=== PATIENT | male | born 1955 | race Caucasian/White ===

== ENCOUNTER → 2017-08-12 09:47 | Outpatient (CLI) | payer OTHER, SELFPAY ==
[2017-08-12 10:32] LABS: Absolute Lymphocyte Count 1.56 X10^3/ul (0.83-4.51); Absolute Neutrophil Count 2.9 X10^3/uL (2.0-7.7); Basophil# 0.05 X10^3/uL; Eosinophil# 0.31 X10^3/uL; Hematocrit 46.3 % (40-54); Hemoglobin 15.7 g/dl (13.0-16.5); Lymphocyte # 1.56 X10^3/ul (4.0); Lymphocyte % 30.2 % (19-41); Mean Corp Hgb Conc 33.9 g/gl (32-36); Mean Corpuscular Hgb 30.5 pg (27.0-32.0); Mean Corpuscular Volume 90.1 fL (80-94); Mean Platelet Vol. 12.3 fl (6.2-12.0); Monocyte# 0.38 X10^3/uL; Monocyte% 7.4 % (0-10); Neutrophil # 2.85 X10^3/uL (2.7-7.7); Neutrophil % 55.2 % (47-70); Platelet Count 165 K/mm3 (150-450); RBC Distribution Width CV 13.6 % (11.6-14.6); RBC Distribution Width SD 44.8 fl (35.1-43.9); Red Blood Count 5.14 M/mm3 (4.6-6.2); White Blood Count 5.2 K/mm3 (4.4-11.0)
[2017-08-12 10:51] LABS: POSITIVE COUNT NO; POSITIVE DIFFERENTIAL NO; POSITIVE MORPHOLOGY NO
[2017-08-12 10:57] LABS: ALB/GLOB Ratio 1.1 RATIO (0.9-2.4); AST(SGOT) 24 U/L (15-37); Alanine Aminotransfer ALT/SGPT 25 U/L (16-61); Albumin, Serum 3.8 g/dL (3.2-5.0); Alkaline Phosphatase 50 U/L (45-117); Anion Gap 8 (5-15); BUN 24 mg/dL (7-18); BUN/Creat Ratio 13.3 RATIO (10-20); Calcium,Total 8.9 mg/dL (8.5-10.1); Chloride 105 mmol/L (98-107); Creatinine, Serum 1.81 mg/dL (0.70-1.30); EST Glomerular Filtration Rate 40 mL/min (>60); Est Glom Filt Rate - Afr Amer 49 mL/min (>60); Globulin 3.5 g/dL (2.2-4.2); Glucose 63 mg/dL (74-106); PSA,Total - Annual Screen 1.95 ng/mL (0.00-4.00); Potassium 4.6 mmol/L (3.5-5.1); Protein, Total 7.3 g/dL (6.4-8.2); Sodium Level 141 mmol/L (136-145); Thyroid Stim Hormone (TSH) 0.92 uIU/mL (0.358-3.74)
[2017-08-13 16:01] LABS: Hep C Antibodies <0.1 s/co ratio (0.0-0.9)
== END ==
PROVIDERS: Family Provider Family Medicine Geriatric Medicine; PCP Family Medicine Geriatric Medicine; Visit Provider Family Medicine Geriatric Medicine
DX: F52.8 Other sexual dysfunction not due to a substance or known physiological condition (principal); R53.83 Other fatigue; Z12.5 Encounter for screening for malignant neoplasm of prostate; Z13.89 Encounter for screening for other disorder
CPT/HCPCS: 36415; 80053; 84153; 84403; 84443; 85025; 86803; G0103

== ENCOUNTER → 2017-09-20 10:52 | Outpatient (CLI) | payer OTHER, SELFPAY ==
--- NOTE | 2017-09-20 10:56 | US_ITS ---
STUDY: RENAL ULTRASOUND - COMPLETE REASON FOR EXAM: Male, 62 years old. Acute renal failure. TECHNIQUE: Ultrasound evaluation of the kidneys was performed with real-time and static villagomez-scale imaging. COMPARISON: CT scan 12/04/2014. FINDINGS: RIGHT KIDNEY: Normal location of the right kidney, which is normal in size. The right kidney measures 12.8 x 5.4 x 6.4 cm. There is a normal cortex of the right kidney. The renal cortex measures 1.2 cm. Full right renal cysts are seen measuring 1.5 and 5.3 cm. Large area of shadowing and echogenicity in the lower pole is consistent with a renal stone approximately 1.8 cm. There is no right hydronephrosis. DISTAL RIGHT URETER: There is non-visualization of the distal right ureter. There is no demonstrated right ureterovesical junction calculus. There is a visualized right ureteral jet. LEFT KIDNEY: Normal location of the left kidney, which is normal in size. The left kidney measures 10.8 x 8.0 x 7.7 cm. There is diffuse thinning of the renal cortex. The renal cortex measures 0.9 cm. Multiple renal cysts as much as 1.2 cm. Probable 1.1 cm lower pole stone. Probable 1.1 cm proximal ureteral stone. There is severe hydronephrosis of the left kidney. DISTAL LEFT URETER: There is moderate hydroureter of the distal left ureter. There is no demonstrated left ureterovesical junction calculus. There is a visualized left ureteral jet. BLADDER: There is a normal wall thickness of the distended urinary bladder. There is no demonstrated mass within the urinary bladder. There are no demonstrated bladder calculi. US/Kidney and Bladder IMPRESSION: Severe left hydronephrosis and proximal hydroureter related to a 1.1 cm proximal ureteral stone. Bilateral renal cysts and stones. Electronically Signed: Trevor Berrios MD at 16:55 EDT , Service support ,
== END ==
PROVIDERS: Family Provider Family Medicine Geriatric Medicine; PCP Family Medicine Geriatric Medicine; Visit Provider Internal Medicine Nephrology
DX: N17.9 Acute kidney failure, unspecified (principal)
CPT/HCPCS: 76770

== ENCOUNTER → 2017-10-11 08:43 | Outpatient (CLI) | payer OTHER, SELFPAY ==
[2017-10-11 10:56] LABS: Albumin, Serum 3.8 g/dL (3.2-5.0); BUN 19 mg/dL (7-18); Calcium,Total 8.6 mg/dL (8.5-10.1); Chloride 103 mmol/L (98-107); EST Glomerular Filtration Rate 34 mL/min (>60); Est Glom Filt Rate - Afr Amer 41 mL/min (>60); Glucose 157 mg/dL (74-106); Potassium 4.4 mmol/L (3.5-5.1); Sodium Level 137 mmol/L (136-145)
== END ==
PROVIDERS: Family Provider Family Medicine Geriatric Medicine; PCP Family Medicine Geriatric Medicine; Visit Provider Internal Medicine Nephrology
DX: N18.3 Chronic kidney disease, stage 3 (moderate) (principal)
CPT/HCPCS: 36415; 80069

== ENCOUNTER → 2017-10-28 08:52 | Outpatient (CLI) | payer OTHER, SELFPAY ==
[2017-10-28 10:48] LABS: Anion Gap 7 (5-15); BUN 23 mg/dL (7-18); BUN/Creat Ratio 12.9 RATIO (10-20); Calcium,Total 8.6 mg/dL (8.5-10.1); Chloride 107 mmol/L (98-107); Creatinine, Serum 1.78 mg/dL (0.70-1.30); EST Glomerular Filtration Rate 41 mL/min (>60); Est Glom Filt Rate - Afr Amer 50 mL/min (>60); Glucose 119 mg/dL (74-106); Potassium 4.4 mmol/L (3.5-5.1); Sodium Level 142 mmol/L (136-145)
== END ==
PROVIDERS: Family Provider Family Medicine Geriatric Medicine; PCP Family Medicine Geriatric Medicine; Visit Provider Internal Medicine Nephrology
DX: N17.9 Acute kidney failure, unspecified (principal)
CPT/HCPCS: 36415; 80048

== ENCOUNTER → 2017-11-11 08:11 | Outpatient (CLI) | payer OTHER, SELFPAY ==
--- NOTE | 2017-11-11 08:14 | RAD_ITS ---
STUDY: X-RAY - ABDOMEN/PELVIS REASON FOR EXAM: Male, 62 years old. Bilateral kidney stones. History of left sided stent. TECHNIQUE: Two AP supine views of the abdomen and pelvis. COMPARISON: Ultrasound of the kidneys and bladder, September 20, 2017. Abdomen, March 19, 2015. FINDINGS: The lung bases are not included. There is an unremarkable bowel gas pattern. There is no demonstrated free abdominal air. The visualized liver, spleen and kidneys are grossly normal in size and morphology. There is a left ureteral stent. There is increase in size of a left staghorn calculus when compared to the prior study. There is now a 1.6 x 1 cm ovoid calcification in the left renal pelvis. There is a stable calcification lower pole calyx of the left kidney measuring 1.6 cm in greatest dimension. Previous study. Normal soft tissue structures. There are diffuse degenerative changes of the visualized lumbar spine. RAD/Abdomen Single View IMPRESSION: 1. Increasing size of left staghorn calculus when compared to prior study. There is now a calcification in the left renal pelvis not previously seen. 2. New left ureteral stent. 3. Stable right lower pole renal calculus. Electronically Signed: Mac Ny DO at 16:52 EDT Tel [phone], Service support ,
== END ==
PROVIDERS: Family Provider Family Medicine Geriatric Medicine; PCP Family Medicine Geriatric Medicine; Visit Provider Urology
DX: N20.1 Calculus of ureter (principal)
CPT/HCPCS: 74018

== ENCOUNTER → 2018-07-28 16:53 | Outpatient (CLI) | payer OTHER, SELFPAY ==
[2018-07-28 17:36] LABS: Albumin, Serum 3.7 g/dL (3.2-5.0); BUN 23 mg/dL (7-18); Calcium,Total 8.8 mg/dL (8.5-10.1); Chloride 109 mmol/L (98-107); Creatinine, Serum 1.77 mg/dL (0.70-1.30); EST Glomerular Filtration Rate 41 mL/min (>60); Est Glom Filt Rate - Afr Amer 50 mL/min (>60); Glucose 110 mg/dL (74-106); Phosphorus 3.6 mg/dL (2.5-4.9); Sodium Level 143 mmol/L (136-145)
== END ==
PROVIDERS: Family Provider Family Medicine Geriatric Medicine; PCP Family Medicine Geriatric Medicine; Visit Provider Internal Medicine Nephrology
DX: N18.3 Chronic kidney disease, stage 3 (moderate) (principal)
CPT/HCPCS: 36415; 80069

== ENCOUNTER → 2018-08-18 08:59 | Outpatient (CLI) | payer OTHER, SELFPAY ==
[2018-08-18 12:46] LABS: Absolute Lymphocyte Count 1.35 X10^3/ul (0.83-4.51); Absolute Neutrophil Count 3.3 X10^3/uL (2.0-7.7); Basophil# 0.02 X10^3/uL; Basophil% 0.4 % (0-1); Eosinophil# 0.32 X10^3/uL; Eosinophils% 6.1 % (0-5); Hematocrit 46.2 % (40-54); Hemoglobin 14.9 g/dl (13.0-16.5); Lymphocyte # 1.35 X10^3/ul (4.0); Lymphocyte % 25.7 % (19-41); Mean Corp Hgb Conc 32.3 g/gl (32-36); Mean Corpuscular Hgb 29.7 pg (27.0-32.0); Mean Platelet Vol. 12.4 fl (6.2-12.0); Monocyte# 0.29 X10^3/uL; Monocyte% 5.5 % (0-10); Neutrophil # 3.27 X10^3/uL (2.7-7.7); Neutrophil % 62.3 % (47-70); Platelet Count 166 K/mm3 (150-450); RBC Distribution Width CV 13.5 % (11.6-14.6); RBC Distribution Width SD 44.8 fl (35.1-43.9); Red Blood Count 5.02 M/mm3 (4.6-6.2); White Blood Count 5.3 K/mm3 (4.4-11.0)
[2018-08-18 13:09] LABS: POSITIVE COUNT NO; POSITIVE DIFFERENTIAL NO; POSITIVE MORPHOLOGY NO
[2018-08-18 13:40] LABS: Albumin, Serum 3.8 g/dL (3.2-5.0); BUN 23 mg/dL (7-18); BUN/Creat Ratio 11.7 RATIO (10-20); Creatinine, Serum 1.97 mg/dL (0.70-1.30); EST Glomerular Filtration Rate 37 mL/min (>60); Est Glom Filt Rate - Afr Amer 44 mL/min (>60); Glucose 132 mg/dL (74-106); Protein, Total 7.1 g/dL (6.4-8.2)
[2018-08-18 13:41] LABS: ALB/GLOB Ratio 1.2 RATIO (0.9-2.4); AST(SGOT) 26 U/L (15-37); Alanine Aminotransfer ALT/SGPT 25 U/L (16-61); Alkaline Phosphatase 55 U/L (45-117); Anion Gap 10 (5-15); Calcium,Total 8.7 mg/dL (8.5-10.1); Chloride 104 mmol/L (98-107); Globulin 3.3 g/dL (2.2-4.2); PSA,Total - Annual Screen 3.71 ng/mL (0.00-4.00); Potassium 4.2 mmol/L (3.5-5.1); Sodium Level 141 mmol/L (136-145); Thyroid Stim Hormone (TSH) 1.33 uIU/mL (0.358-3.74)
== END ==
PROVIDERS: Family Provider Family Medicine Geriatric Medicine; PCP Family Medicine Geriatric Medicine; Visit Provider Family Medicine Geriatric Medicine
DX: I10 Essential (primary) hypertension (principal); F52.8 Other sexual dysfunction not due to a substance or known physiological condition; Z12.5 Encounter for screening for malignant neoplasm of prostate
CPT/HCPCS: 36415; 80053; 84153; 84403; 84443; 85025; G0103

== ENCOUNTER → 2018-08-26 13:42 | Outpatient (CLI) | payer MEDICARE, OTHER, SELFPAY ==
--- NOTE | 2018-08-26 13:51 | ECHOD_ITS ---
Reason For Study: SOB, aortic stenosis Procedure This was a 2D Doppler, Color Flow transthoracic echocardiogram. The exam was of adequate technical quality. Exam performed in department. Left Ventricle Normal LV size. Mild concentric left ventricular hypertrophy. Left ventricular systolic function is normal. The estimated ejection fraction is 65 %. Diastolic function is indeterminate. No regional wall motion abnormalities noted. Right Ventricle Normal RV size. Normal systolic function. Atria Normal left atrium. Normal right atrium. No doppler evidence for ASD. Mitral Valve There is no mitral annular calcification. Mild focal mitral valve calcification of the anterior leaflet. Trivial mitral valve insufficiency. Tricuspid Valve Normal tricuspid valve. Trivial tricuspid valve insufficiency. Right ventricular systolic pressure estimated to be 31 mmHg. Aortic Valve Trisinus/trileaflet aortic valve. Mild focal aortic valve calcification. Trivial aortic valve insufficiency. Pulmonic Valve The pulmonic valve is not well visualized. Great Vessels Normal sized aortic root. Pericardium/Pleural No pericardial effusion. MMode/2D Measurements & Calculations LVIDd: 4.6 cm IVSd: 1.3 cm LVOT diam: 2.3 cm LVIDs: 3.0 cm LVPWd: 1.3 cm LVOT area: 4.1 cm2 RVDd: 3.8 cm FS: 34.5 % Ao root diam: 3.4 cm LAV(MOD-bp): 65.7 ml LA A4 area: 19.6 cm2 LAV(MOD-bp) Indexed: 32.9 ml/m2 LAV(MOD-sp2): 62.8 ml LAV(MOD-sp4): 63.7 ml LA dimension(2D): 3.8 cm RA A4 area: 18.2 cm2 Doppler Measurements & Calculations MV E max john: 114.7 cm/sec Lat Peak E' John: 7.7 cm/sec Med Peak E' John: 7.4 cm/sec MV A max john: 80.2 cm/sec E/E' lat: 14.9 E/E' med: 15.6 MV E/A: 1.4 Ao V2 max: 194.4 cm/sec LV V1 max: 154.1 cm/sec SV(LVOT): 140.4 ml Ao max P.2 mmHg LV V1 max P.5 mmHg Ao V2 mean: 138.3 cm/sec LV V1 mean P.1 mmHg Ao mean P.4 mmHg LV V1 mean: 106.5 cm/sec Ao V2 VTI: 41.9 cm LV V1 VTI: 34.4 cm TAMY(I,D): 3.4 cm2 TAMY(V,D): 3.2 cm2 PA V2 max: 115.7 cm/sec TR max john: 260.8 cm/sec TR max P.6 mmHg Interpretation Summary Left ventricular systolic function is normal. The estimated ejection fraction is 65 %. Mild concentric left ventricular hypertrophy. Mild focal mitral valve calcification of the anterior leaflet. Trivial mitral valve insufficiency. Trivial tricuspid valve insufficiency. Mild focal aortic valve calcification. Trivial aortic valve insufficiency. Right ventricular systolic pressure estimated to be 31 mmHg. Diastolic function is indeterminate. Ordering Physician: Arsenio Stafford Referring Physician: Arsenio Stafford Chi Performed By: Tonya Taylor, BETO, RVT
== END ==
PROVIDERS: Family Provider Family Medicine Geriatric Medicine; PCP Family Medicine Geriatric Medicine; Referring Provider Family Medicine Geriatric Medicine; Visit Provider Family Medicine Geriatric Medicine
DX: I35.8 Other nonrheumatic aortic valve disorders (principal); R06.02 Shortness of breath
CPT/HCPCS: 93306

== ENCOUNTER → 2019-07-29 10:45 | Outpatient (CLI) | payer MEDICARE, OTHER, SELFPAY ==
[2018-12-17 10:49] VITALS: BMI 24.6
[2019-07-29 12:34] LABS: Absolute Lymphocyte Count 1.89 X10^3/uL (0.83-4.51); Absolute Neutrophil Count 4.2 X10^3/uL (2.0-7.7); Basophil# 0.05 X10^3/uL; Basophil% 0.7 % (0-1); Eosinophil# 0.22 X10^3/uL; Eosinophils% 3.3 % (0-5); Lymphocyte # 1.89 X10^3/ul (4.0); Lymphocyte % 28.3 % (19-41); Mean Corp Hgb Conc 33.3 g/dL (32-36); Mean Corpuscular Hgb 29.6 pg (27.0-32.0); Mean Corpuscular Volume 88.7 fL (80-94); Mean Platelet Vol. 11.8 fl (6.2-12.0); Monocyte# 0.29 X10^3/uL; Monocyte% 4.3 % (0-10); NRBC Flagged by Analyzer 0 % (0-5); Neutrophil # 4.21 X10^3/uL (2.7-7.7); Neutrophil % 63.1 % (47-70); Platelet Count 201 K/mm3 (150-450); RBC Distribution Width SD 41.8 fl (35.1-43.9); Red Blood Count 5.41 M/mm3 (4.6-6.2); White Blood Count 6.7 K/mm3 (4.4-11.0)
[2019-07-29 13:22] LABS: AST(SGOT) 23 U/L (15-37); Alanine Aminotransfer ALT/SGPT 24 U/L (12-78); Albumin, Serum 3.9 g/dL (3.4-5.0); Alkaline Phosphatase 63 U/L (50-136); Anion Gap 4 (5-15); BUN 19 mg/dL (7-18); BUN/Creat Ratio 10.6 RATIO (10-20); Calcium,Total 9.3 mg/dL (8.5-10.1); Chloride 106 mmol/L (98-107); Cholesterol 155 mg/dL (200); EST Glomerular Filtration Rate 40 mL/min (>60); Est Glom Filt Rate - Afr Amer 49 mL/min (>60); Globulin 4.1 g/dL (2.3-3.5); Glucose 113 mg/dL (70-110); High Density Lipoprotein 53 mg/dL; Potassium 4.4 mmol/L (3.5-5.1); Sodium Level 138 mmol/L (136-145); Thyroid Stim Hormone (TSH) 0.91 uIU/mL (0.358-3.74); Triglycerides 124 mg/dL; Very Low Density Lipoprotein 25 mg/dL (5-40)
== END ==
PROVIDERS: PCP Family Medicine Geriatric Medicine; Referring Provider Internal Medicine Nephrology; Visit Provider Family Medicine Geriatric Medicine
DX: I12.9 Hypertensive chronic kidney disease with stage 1 through stage 4 chronic kidney disease, or unspecified chronic kidney disease (principal); N18.3 Chronic kidney disease, stage 3 (moderate); E78.5 Hyperlipidemia, unspecified
CPT/HCPCS: 36415; 80053; 80061; 84443; 85025

== ENCOUNTER → 2019-08-20 | Outpatient (CLI) | payer MEDICARE, OTHER, SELFPAY ==
[2018-12-17 10:49] VITALS: BMI 24.6
[2019-08-20 11:58] LABS: Absolute Lymphocyte Count 1.65 X10^3/uL (0.83-4.51); Absolute Neutrophil Count 4.1 X10^3/uL (2.0-7.7); Basophil# 0.04 X10^3/uL; Basophil% 0.6 % (0-1); Eosinophil# 0.29 X10^3/uL; Eosinophils% 4.5 % (0-5); Hematocrit 46.5 % (40-54); Hemoglobin 15.3 g/dL (13.0-16.5); Lymphocyte # 1.65 X10^3/ul (4.0); Lymphocyte % 25.8 % (19-41); Mean Corp Hgb Conc 32.9 g/dL (32-36); Mean Corpuscular Volume 88.2 fL (80-94); Mean Platelet Vol. 11.6 fl (6.2-12.0); Monocyte# 0.32 X10^3/uL; NRBC Flagged by Analyzer 0 % (0-5); Neutrophil # 4.08 X10^3/uL (2.7-7.7); Neutrophil % 63.9 % (47-70); Platelet Count 192 K/mm3 (150-450); RBC Distribution Width CV 13.3 % (11.6-14.6); RBC Distribution Width SD 42.8 fl (35.1-43.9); Red Blood Count 5.27 M/mm3 (4.6-6.2); White Blood Count 6.4 K/mm3 (4.4-11.0)
[2019-08-20 12:03] LABS: Vitamin D,25 Hydroxy 37.2 ng/mL
[2019-08-20 12:09] LABS: AST(SGOT) 24 U/L (15-37); Alanine Aminotransfer ALT/SGPT 30 U/L (16-61); Albumin, Serum 3.8 g/dL (3.2-5.0); Alkaline Phosphatase 62 U/L (45-117); Anion Gap 5 (5-15); BUN 20 mg/dL (7-18); BUN/Creat Ratio 11.7 RATIO (10-20); Calcium,Total 8.7 mg/dL (8.5-10.1); Chloride 104 mmol/L (98-107); Creatinine, Serum 1.71 mg/dL (0.70-1.30); EST Glomerular Filtration Rate 43 mL/min (>60); Est Glom Filt Rate - Afr Amer 52 mL/min (>60); Globulin 3.8 g/dL (2.2-4.2); Glucose 145 mg/dL (74-106); PSA,Total - Annual Screen 3.43 ng/mL (0.00-4.00); Potassium 4.1 mmol/L (3.5-5.1); Protein, Total 7.6 g/dL (6.4-8.2); Sodium Level 138 mmol/L (136-145); Thyroid Stim Hormone (TSH) 1.05 uIU/mL (0.358-3.74)
== END | disposition home or self-care (01) ==
LOC: POLAB3 10:46
PROVIDERS: PCP Family Medicine Geriatric Medicine; Visit Provider Family Medicine Geriatric Medicine
DX: E55.9 Vitamin D deficiency, unspecified (principal); I10 Essential (primary) hypertension; Z12.5 Encounter for screening for malignant neoplasm of prostate
CPT/HCPCS: 36415; 80053; 82306; 84153; 84443; 85025; G0103

== ENCOUNTER → 2020-01-18 | Outpatient (CLI) | payer MEDICARE, OTHER, SELFPAY ==
[2018-12-17 10:49] VITALS: BMI 24.6
--- NOTE | 2020-01-18 13:53 | NEURO ---
NCS and/or EMG Patient Report Ordering Doctor: Arsenio Stafford Chi DATE OF SERVICE: 01/18/20 Indication: Bilateral hand paresthesias and numbness intermittently. Symptoms have been present on the right side for approximately 15 years. Over the last 6 months there has been interval development of a similar phenomenon in the left upper extremity. No history of localized neck or radicular pain. Evaluate for median neuropathy. Findings: Nerve conduction studies were performed in the bilateral upper extremities. The right median motor study recording the abductor pollicis brevis demonstrated a normal amplitude, prolonged distal latency and normal conduction velocity. The right ulnar motor study recording the abductor digiti minimi revealed a normal amplitude, distal latency and conduction velocity. There was no focal slowing or conduction block across the elbow. The right median sensory response recording digit 2 demonstrated a reduced amplitude, prolonged peak latency and mildly slowed conduction velocity. The right ulnar sensory study recording digit 5 demonstrated a borderline amplitude, normal peak latency, and normal conduction velocity. The right radial sensory study recording the dorsum of the hand demonstrated a normal amplitude, peak latency, and conduction velocity. The left median motor study recording the abductor pollicis brevis demonstrated a normal amplitude, normal distal latency and normal conduction velocity. The left ulnar motor study recording the abductor digiti minimi revealed a normal amplitude, distal latency and conduction velocity (this response was significantly improved compared to the contralateral limb). There was no focal slowing or conduction block across the elbow. The left median sensory response recording digit 2 demonstrated a normal amplitude, prolonged peak latency and normal conduction velocity. The left ulnar sensory study recording digit 5 demonstrated a normal amplitude, peak latency, and conduction velocity. The right radial sensory study recording the dorsum of the hand demonstrated a normal amplitude, peak latency, and conduction velocity. Needle EMG of the right upper extremity was performed. No active denervation was seen in the examined muscle. The right abductor pollicis brevis revealed motor units which were large in amplitude, long duration, and polyphasic with slightly reduced recruitment. The other examined muscles in this limb demonstrated normal motor unit morphology, activation and recruitment patterns. Needle EMG of the left abductor pollicis brevis muscle was performed. No active denervation was seen in this muscle. Motor unit morphology, activation and recruitment pattern was normal. Impression: This is an abnormal study. There is electrophysiologic evidence of median neuropathy across both wrists. This is moderate in severity on the right side (primarily demyelinating with some evidence of chronic secondary axonal loss). Findings are mild in severity in the left upper extremity. These changes would be compatible with the clinical diagnosis of carpal tunnel syndrome. There is no evidence of a superimposed cervical radiculopathy was seen in the right upper extremity. Lastly, the asymmetric ulnar sensory response is of unclear significance. A mild, non-localizing, right ulnar neuropathy could be considered. If clinically indicated, a neuromuscular ultrasound of the right ulnar nerve could be considered. Abdirahman Vanegas D.O.
== END | disposition home or self-care (01) ==
LOC: PSN 12:13
PROVIDERS: PCP Family Medicine Geriatric Medicine; Referring Provider Family Medicine Geriatric Medicine; Visit Provider Family Medicine Geriatric Medicine
DX: G56.00 Carpal tunnel syndrome, unspecified upper limb (principal); G56.13 Other lesions of median nerve, bilateral upper limbs
CPT/HCPCS: 95885; 95886; 95911

== ENCOUNTER → 2020-02-01 13:27 | Outpatient (CLI) | payer MEDICARE, OTHER, SELFPAY ==
[2020-02-01 08:18] VITALS: BMI 24.6
--- NOTE | 2020-02-01 13:28 | RAD_ITS ---
STUDY: X-RAY - RIGHT WRIST REASON FOR EXAM: Male, 64 years old. Carpal tunnel TECHNIQUE: 3 view(s) of the wrist were obtained. COMPARISON: None. FINDINGS: Normal visualized distal radius and ulna. Normal radiocarpal articulation. Normal distal radioulnar articulation. Normal carpal bones. Normal carpal articulations. Normal carpometacarpal articulation of the thumb. Normal second through fifth carpometacarpal articulations. Normal visualized metacarpal bones. The soft tissue structures are unremarkable. RAD/Wrist min 3 Views IMPRESSION: Normal x-ray examination of the wrist. Electronically Signed: Arun Davalos, at 15:48 EDT , Service support ,
--- NOTE | 2020-02-01 13:28 | RAD_ITS ---
STUDY: X-RAY - LEFT WRIST REASON FOR EXAM: Male, 64 years old. Carpal tunnel TECHNIQUE: 3 view(s) of the wrist were obtained. COMPARISON: None. FINDINGS: Normal visualized distal radius and ulna. Normal radiocarpal articulation. Normal distal radioulnar articulation. Normal carpal bones. Normal carpal articulations. Normal carpometacarpal articulation of the thumb. Normal second through fifth carpometacarpal articulations. Normal visualized metacarpal bones. The soft tissue structures are unremarkable. RAD/Wrist min 3 Views IMPRESSION: Normal x-ray examination of the wrist. Electronically Signed: Arun Davalos, at 15:47 EDT , Service support ,
== END ==
PROVIDERS: PCP Family Medicine Geriatric Medicine; Referring Provider Orthopaedic Surgery; Visit Provider Orthopaedic Surgery
DX: M25.532 Pain in left wrist (principal); M25.531 Pain in right wrist
CPT/HCPCS: 73110

== ENCOUNTER 2020-04-05 05:38 | Day surgery (SDC) | payer MEDICARE, OTHER, SELFPAY ==
[2020-02-01 08:18] VITALS: BMI 24.6
[2020-03-21 08:53] VITALS: BMI 24.6
[2020-04-05 05:57] VITALS: BP 130/84; PULSE 59; RESP 16; TEMP 36.2; O2SAT 99; BMI 26.4
[2020-04-05] MEDS: Lactated Ringers 1,000 ML 100 ML IV (06:32)
[2020-04-05] MEDS: Cefazolin 2 GM in 0.9% Normal Saline 100 ML IV (07:02)
--- NOTE | 2020-04-05 07:10 | PCM.HP.BLA ---
History and Physical Date of Admission: 04/05/20 Intake Intake Visit Reasons: right wrist Chief Complaint: BL wrist Allergies No Known Allergies Allergy (Verified 12/17/18 10:46) [facility] Medical History (Updated 12/17/18 @ 10:50 by Randall ELAM, PA) Arthritis (Acute) HTN (hypertension) (Chronic) Social History (Updated 03/21/20 @ 09:[address] Tyrell Yates DO) Smoking Status: Former smoker alcohol intake: never HPI right wrist: Surgical H&P: Yes Details: Parts of this documentation were recorded by a scribe, this documentation accurately reflects the service provided and the decisions made by me, Dr. Tyrell Yates DO 03/21/20 0800. KIKE INGRAM is a 64 year old M here today for his pre-op right CTR on 04/05/2020. Denies pain currently. Pain is primarily located with the thumb and second, third and fourth metacarpal. Patient experiences numbness and tingling at [facility]. Patient wears a brace at [facility]. Denies usage of Tylenol and ibuprofen for pain. Denies ice packs and heat applications. ROS Const Reports system reviewed and no additional complaints, except as docu, Denies chills, Denies difficulty sleeping, Denies fatigue, Denies fever(s), Denies headache(s) ENT Denies headache(s) Card Reports system reviewed and no additional complaints, except as docu, Denies chest pain, Denies shortness of breath Resp Reports system reviewed and no additional complaints, except as docu, Denies chest congestion, Denies cough, Denies shortness of breath Musc Reports system reviewed and no additional complaints, except as docu, Denies joint pain, Denies joint swelling, Reports numbness, Reports stiffness, Reports tingling Skin/Breast Reports system reviewed and no additional complaints, except as docu, Denies dry skin, Denies redness, Denies lesions, Denies new lesions, Denies itching, Denies rash, Denies skin ulcer, Denies sores, Denies wounds Neuro Yes system reviewed and no additional complaints, except as docu, No headache(s), Yes numbness, Yes tingling Endo Denies fatigue Ortho Exam Right Wrist/Hand Skin/Wound: Yes CDI, No Swelling, No Ecchymosis, Yes nail intact, Yes capillary refill normal Right Wrist: Yes Durken's Test and Phalen's; no Tinel's, Thenar Atrophy or Hypothenar Atrophy Sensation: Radial: I, Ulnar: I, Median: I Left Wrist/Hand Skin/Wound: No Swelling, No Ecchymosis Supplemental Info 01/18/2020 EMG bilateral upper extremity: Right moderate median mononeuropathy at the wrist(carpal tunnel) mild ulnar neuropathy in question #2 left mild carpal tunnel Assessment & Plan Problems 1. Bilateral carpal tunnel syndrome G56.03 Plan Educated where the incision would be located. Numbness and tingling should improve after surgery. Educated to the patient has ulnar neuropathy, which may improve with surgery. Reviewed the pre-operative plans with the patient. Risks and benefits of the procedure were fully explained, including but not limited to infection, neurovascular injury, continued pain, arthritis, stiffness, need for further surgery, re-injury, DVT, PE, general risks of anesthesia, and loss of limb or life. The patient understands all the risks and does wish to proceed with written consent. All questions answered. Patient in agreement of plan. Coding Level of Care Code Off vis,est,level 3 Diagnoses Bilateral carpal tunnel syndrome G56.03 I have re-examined the patient. There are no clinical changes since date of exam
--- NOTE | 2020-04-05 07:11 | DCINST_ITS ---
Discharge Diet: No Restrictions Call your doctor if you observe: Shortness of breath, Chest pain Additional Instructions: Ice and elevate operative extremity next 72 hours. Keep dressing on clean and dry for 48 hours then may remove and allow warm soapy water to rinse over incision but do not submerge until sutures are out. Then apply bandaid over incision and change daily. encourage finger range of motion. Not lift more than 1/2 pound. Allergies/Adverse Reactions: Allergies No Known Allergies Allergy (Verified 04/05/20 05:55) Medications to take at Discharge Pravastatin [Pravachol] 40 mg PO QHS 12/27/14 amlodipine 5 mg tablet 5 mg PO QHS #30 tab 12/17/18 gabapentin 600 mg tablet 600 mg PO TID #90 tab 12/17/18 Aspirin [Adult Low Dose Aspirin EC] 81 mg PO DAILY 03/25/20 Multivit-Min/Folic/Vit K/Lycop [Men's 50 Plus Multivitamin Tab] 1 ea PO DAILY 03/25/20 Primary Care Physician: Arsenio Stafford Chi, MD [Primary Care Provider] - Test Results: Test results from this visit will be discussed in further detail at your follow- up appointment, if applicable. Please Follow Up With: Tyrell Yates DO - 2 weeks
--- NOTE | 2020-04-05 07:31 | PCM.OPRPT ---
Report of Operation Date of Procedure: 04/05/20 Description of Surgical Findings:: Preoperative diagnosis; right carpal tunnel syndrome Postoperative diagnosis; same Procedure: Right open carpal tunnel release Anesthesia: Local with MAC Tourniquet time; 10 minutes 250 mm Hg Complications: None Indication for procedure; This is a 64-year-old male with long-standing symptoms consistent with carpal tunnel syndrome the patient did have electrodiagnostic evidence of this and has failed conservative treatment. Risks benefits and alternatives were reviewed including risks of bleeding infection nerve artery tissue damage need for further surgery and continued pain and symptoms, hypersensitivity to scar and Pillar pain. Procedure; The patient was met in the preoperative holding area the operative extremity was identified by both patient and physician and was marked the patient was met by anesthesia and brought back to the operating room and transferred to the operating table in the supine position. Aanesthesia was started. A well-padded tourniquet was placed on the operative upper extremity. The patient was prepped and draped in the usual sterile fashion. A timeout was called to ensure the proper patient procedure and extremity were being contemplated. 0.5 percent Marcaine with epinephrine was injected into the incisional area. An Esmarch was used to exsanguinate the extremity. The tourniquet was inflated to 250 mmHg. A midline incision was made with a 15 blade scalpel between the thenar and hypothenar eminence. This was carried down through the skin and subcutaneous tissue. Aziza retractors were then used, a deep blade scalpel was used to make a deep incision in the palmar aponeurosis. The aziza retractors were then placed deep to this and the transverse carpal ligament was identified a perforation was made with a scalpel and a Littler scissors were used to complete the release of the transverse carpal ligament distally under direct visualization with the tips facing ulnarly until the perivascular fat was reached. Then turning our attention proximally using a tension slide technique the proximal extent of the transverse carpal ligament was released . There was noted to be hourglass configuration to the median nerve and hypertrophy of the transverse carpal ligament without other findings. The wound was thoroughly irrigated and was closed with 4-0 prolene vertical mattress stitches. Dressing was applied in the form of xeroform 4 x 4, web roll and an kendrick wrap. Tourniquet was let down there is no intraoperative complications patient tolerated the procedure well and was transferred to the PACU. All counts were correct.
[2020-04-05 07:35] VITALS: BP 130/77; BP 130/84; PULSE 57; RESP 16; TEMP 36.4; O2SAT 94
[2020-04-05 07:40] VITALS: BP 130/84; BP 138/72; PULSE 57; RESP 16; O2SAT 92
[2020-04-05 07:45] VITALS: BP 130/84; BP 131/82; PULSE 58; RESP 14; O2SAT 94
[2020-04-05 07:51] VITALS: BP 130/84; BP 136/83; PULSE 61; RESP 16; TEMP 36.6; O2SAT 95
[2020-04-05 08:05] VITALS: BP 130/84
--- NOTE | 2020-04-05 10:05 | HP_ITS ---
Intake Intake Visit Reasons: right wrist Chief Complaint: BL wrist Allergies No Known Allergies Allergy (Verified 12/17/18 10:46) [facility] Medical History (Updated 12/17/18 @ 10:50 by PAPA Mendez) Arthritis (Acute) HTN (hypertension) (Chronic) Social History (Updated 03/21/20 @ 09:[address] Tyrell Yates DO) Smoking Status: Former smoker alcohol intake: never HPI right wrist: Surgical H&P: Yes Details: Parts of this documentation were recorded by a scribe, this documentation accurately reflects the service provided and the decisions made by me, Dr. Tyrell Yates DO 03/21/20 0800. KIKE INGRAM is a 64 year old M here today for his pre-op right CTR on 04/05/2020. Denies pain currently. Pain is primarily located with the thumb and second, third and fourth metacarpal. Patient experiences numbness and tingling at [facility]. Patient wears a brace at [facility]. Denies usage of Tylenol and ibuprofen for pain. Denies ice packs and heat applications. ROS Const Reports system reviewed and no additional complaints, except as docu, Denies chills, Denies difficulty sleeping, Denies fatigue, Denies fever(s), Denies headache(s) ENT Denies headache(s) Card Reports system reviewed and no additional complaints, except as docu, Denies chest pain, Denies shortness of breath Resp Reports system reviewed and no additional complaints, except as docu, Denies chest congestion, Denies cough, Denies shortness of breath Musc Reports system reviewed and no additional complaints, except as docu, Denies joint pain, Denies joint swelling, Reports numbness, Reports stiffness, Reports tingling Skin/Breast Reports system reviewed and no additional complaints, except as docu, Denies dry skin, Denies redness, Denies lesions, Denies new lesions, Denies itching, Denies rash, Denies skin ulcer, Denies sores, Denies wounds Neuro Yes system reviewed and no additional complaints, except as docu, No headache(s), Yes numbness, Yes tingling Endo Denies fatigue Ortho Exam Right Wrist/Hand Skin/Wound: Yes CDI, No Swelling, No Ecchymosis, Yes nail intact, Yes capillary refill normal Right Wrist: Yes Durken's Test and Phalen's; no Tinel's, Thenar Atrophy or Hypothenar Atrophy Sensation: Radial: I, Ulnar: I, Median: I Left Wrist/Hand Skin/Wound: No Swelling, No Ecchymosis Supplemental Info 01/18/2020 EMG bilateral upper extremity: Right moderate median mononeuropathy at the wrist(carpal tunnel) mild ulnar neuropathy in question #2 left mild carpal tunnel Assessment & Plan Problems 1. Bilateral carpal tunnel syndrome G56.03 Plan Educated where the incision would be located. Numbness and tingling should improve after surgery. Educated to the patient has ulnar neuropathy, which may improve with surgery. Reviewed the pre-operative plans with the patient. Risks and benefits of the procedure were fully explained, including but not limited to infection, neurovascular injury, continued pain, arthritis, stiffness, need for further surgery, re-injury, DVT, PE, general risks of anesthesia, and loss of limb or life. The patient understands all the risks and does wish to proceed with written consent. All questions answered. Patient in agreement of plan. Coding Level of Care Code Off vis,est,level 3 Diagnoses Bilateral carpal tunnel syndrome G56.03
== END 2020-04-05 08:30 | disposition home or self-care (01) ==
LOC: SDC 05:39 → AC 05:39
PROVIDERS: Anesthesiology; PCP Family Medicine Geriatric Medicine; Referring Provider Orthopaedic Surgery; Visit Provider Orthopaedic Surgery
PROC: (CPT 64721; principal; 2020-04-05 07:00)
DX: G56.01 Carpal tunnel syndrome, right upper limb (principal); E78.00 Pure hypercholesterolemia, unspecified; I12.9 Hypertensive chronic kidney disease with stage 1 through stage 4 chronic kidney disease, or unspecified chronic kidney disease; N18.2 Chronic kidney disease, stage 2 (mild); Z11.59 Encounter for screening for other viral diseases; Z87.891 Personal history of nicotine dependence
CPT/HCPCS: 01810; 64721; 87635; C9803; J7120; U0003

== ENCOUNTER → 2020-07-26 12:35 | Outpatient (CLI) | payer MEDICARE, OTHER, SELFPAY ==
[2020-07-26 14:21] LABS: Albumin, Serum 3.4 g/dL (3.2-5.0); BUN 19 mg/dL (7-18); BUN/Creat Ratio 11.7 RATIO (10-20); Calcium,Total 8.7 mg/dL (8.5-10.1); Chloride 107 mmol/L (98-107); Creatinine, Serum 1.63 mg/dL (0.70-1.30); EST Glomerular Filtration Rate 45 mL/min (>60); Est Glom Filt Rate - Afr Amer 55 mL/min (>60); Glucose 105 mg/dL (74-106); Phosphorus 2.3 mg/dL (2.5-4.9); Sodium Level 140 mmol/L (136-145)
== END ==
PROVIDERS: PCP Family Medicine Geriatric Medicine; Referring Provider Internal Medicine Nephrology; Visit Provider Internal Medicine Nephrology
DX: N18.30 Chronic kidney disease, stage 3 unspecified (principal)
CPT/HCPCS: 36415; 80069

== ENCOUNTER → 2020-08-22 10:10 | Outpatient (CLI) | payer MEDICARE, OTHER, SELFPAY ==
[2020-08-22 12:38] LABS: Absolute Lymphocyte Count 1.86 X10^3/uL (0.83-4.51); Absolute Neutrophil Count 2.8 X10^3/uL (2.0-7.7); Basophil# 0.05 X10^3/uL; Basophil% 0.9 % (0-1); Eosinophil# 0.27 X10^3/uL; Hematocrit 48.3 % (40-54); Hemoglobin 15.4 g/dL (13.0-16.5); Lymphocyte # 1.86 X10^3/ul (4.0); Lymphocyte % 34.6 % (19-41); Mean Corp Hgb Conc 31.9 g/dL (32-36); Mean Corpuscular Hgb 29.1 pg (27.0-32.0); Mean Corpuscular Volume 91.1 fL (80-94); Mean Platelet Vol. 12.9 fl (6.2-12.0); Monocyte# 0.37 X10^3/uL; Monocyte% 6.9 % (0-10); NRBC Flagged by Analyzer 0 % (0-5); Neutrophil # 2.82 X10^3/uL (2.7-7.7); Neutrophil % 52.4 % (47-70); Platelet Count 147 K/mm3 (150-450); RBC Distribution Width CV 13.6 % (11.6-14.6); RBC Distribution Width SD 46.2 fl (35.1-43.9); White Blood Count 5.4 K/mm3 (4.4-11.0)
[2020-08-22 13:00] LABS: Vitamin D,25 Hydroxy 37.4 ng/mL
[2020-08-22 13:15] LABS: ALB/GLOB Ratio 1.4 RATIO (0.9-2.4); AST(SGOT) 25 U/L (15-37); Alanine Aminotransfer ALT/SGPT 21 U/L (16-61); Alkaline Phosphatase 54 U/L (45-117); Anion Gap 7 (5-15); BUN 25 mg/dL (7-18); BUN/Creat Ratio 13.8 RATIO (10-20); Calcium,Total 8.8 mg/dL (8.5-10.1); Chloride 105 mmol/L (98-107); Creatinine, Serum 1.81 mg/dL (0.70-1.30); EST Glomerular Filtration Rate 40 mL/min (>60); Est Glom Filt Rate - Afr Amer 48 mL/min (>60); Globulin 2.9 g/dL (2.2-4.2); Glucose 157 mg/dL (74-106); PSA,Total - Annual Screen 2.48 ng/mL (0.00-4.00); Potassium 4.2 mmol/L (3.5-5.1); Protein, Total 6.9 g/dL (6.4-8.2); Sodium Level 139 mmol/L (136-145); Thyroid Stim Hormone (TSH) 0.68 uIU/mL (0.358-3.74)
== END ==
PROVIDERS: PCP Family Medicine Geriatric Medicine; Visit Provider Family Medicine Geriatric Medicine
DX: E55.9 Vitamin D deficiency, unspecified (principal); F52.8 Other sexual dysfunction not due to a substance or known physiological condition; I10 Essential (primary) hypertension; Z12.5 Encounter for screening for malignant neoplasm of prostate
CPT/HCPCS: 36415; 80053; 82306; 84153; 84403; 84443; 85025; G0103

== ENCOUNTER 2021-07-20 10:32 | Outpatient (CLI) | payer MEDICARE, OTHER, SELFPAY ==
[2021-07-20 13:48] LABS: Albumin, Serum 3.7 g/dL (3.2-5.0); BUN 19 mg/dL (7-18); BUN/Creat Ratio 11.2 RATIO (10-20); Calcium,Total 8.9 mg/dL (8.5-10.1); Chloride 104 mmol/L (98-107); Creatinine, Serum 1.69 mg/dL (0.70-1.30); EST Glomerular Filtration Rate 43 mL/min (>60); Est Glom Filt Rate - Afr Amer 52 mL/min (>60); Glucose 149 mg/dL (74-106); Phosphorus 2.4 mg/dL (2.5-4.9); Potassium 3.8 mmol/L (3.5-5.1); Sodium Level 139 mmol/L (136-145)
== END 2021-07-20 23:59 | disposition short-term general hospital (02) ==
LOC: LAB 10:34
PROVIDERS: PCP Family Medicine Geriatric Medicine; Referring Provider Internal Medicine Nephrology; Visit Provider Internal Medicine Nephrology
DX: N18.31 Chronic kidney disease, stage 3a (principal)
CPT/HCPCS: 36415; 80069

== ENCOUNTER 2021-08-23 08:50 | Outpatient (CLI) | payer MEDICARE, OTHER, SELFPAY ==
[2021-08-23 12:06] LABS: Absolute Lymphocyte Count 1.97 X10^3/uL (0.83-4.51); Absolute Neutrophil Count 3.3 X10^3/uL (2.0-7.7); Basophil# 0.05 X10^3/uL; Basophil% 0.8 % (0-1); Eosinophil# 0.33 X10^3/uL; Eosinophils% 5.6 % (0-5); Hematocrit 48.3 % (40-54); Hemoglobin 16.4 g/dL (13.0-16.5); Lymphocyte # 1.97 X10^3/ul (0.83-4.51); Lymphocyte % 33.2 % (19-41); Mean Corpuscular Hgb 30.5 pg (27.0-32.0); Mean Corpuscular Volume 89.9 fL (80-94); Monocyte# 0.32 X10^3/uL; Monocyte% 5.4 % (0-10); NRBC Flagged by Analyzer 0 % (0-5); Neutrophil # 3.25 X10^3/uL (2.7-7.7); Neutrophil % 54.8 % (47-70); Platelet Count 181 K/mm3 (150-450); RBC Distribution Width CV 12.9 % (11.6-14.6); RBC Distribution Width SD 42.4 fl (35.1-43.9); Red Blood Count 5.37 M/mm3 (4.6-6.2); White Blood Count 5.9 K/mm3 (4.4-11.0)
[2021-08-23 12:13] LABS: Vitamin D,25 Hydroxy 46.8 ng/mL
[2021-08-23 12:18] LABS: ALB/GLOB Ratio 0.9 RATIO (0.9-2.4); AST(SGOT) 23 U/L (15-37); Alanine Aminotransfer ALT/SGPT 24 U/L (16-61); Albumin, Serum 3.7 g/dL (3.2-5.0); Alkaline Phosphatase 55 U/L (45-117); Anion Gap 6 (5-15); BUN 23 mg/dL (7-18); BUN/Creat Ratio 12.9 RATIO (10-20); Calcium,Total 8.6 mg/dL (8.5-10.1); Chloride 102 mmol/L (98-107); Creatinine, Serum 1.78 mg/dL (0.70-1.30); EST Glomerular Filtration Rate 41 mL/min (>60); Est Glom Filt Rate - Afr Amer 49 mL/min (>60); Globulin 3.9 g/dL (2.2-4.2); Glucose 162 mg/dL (74-106); Protein, Total 7.6 g/dL (6.4-8.2); Sodium Level 138 mmol/L (136-145); Thyroid Stim Hormone (TSH) 0.85 uIU/mL (0.358-3.74)
== END 2021-08-23 23:59 | disposition home or self-care (01) ==
LOC: POLAB3 08:51
PROVIDERS: PCP Family Medicine Geriatric Medicine; Visit Provider Family Medicine Geriatric Medicine
DX: E55.9 Vitamin D deficiency, unspecified (principal); F52.8 Other sexual dysfunction not due to a substance or known physiological condition; I10 Essential (primary) hypertension; Z12.5 Encounter for screening for malignant neoplasm of prostate
CPT/HCPCS: 36415; 80053; 82306; 84153; 84403; 84443; 85025; G0103

== ENCOUNTER → 2022-08-01 | Outpatient (CLI) | payer MEDICARE, OTHER, SELFPAY ==
[2022-08-01 11:43] LABS: Albumin, Serum 3.7 g/dL (3.2-5.0); BUN 19 mg/dL (7-18); BUN/Creat Ratio 11.4 RATIO (10-20); Chloride 106 mmol/L (98-107); Creatinine, Serum 1.66 mg/dL (0.70-1.30); EST Glomerular Filtration Rate 44 mL/min (>60); Est Glom Filt Rate - Afr Amer 53 mL/min (>60); Glucose 146 mg/dL (74-106); Phosphorus 2.9 mg/dL (2.5-4.9); Potassium 4.4 mmol/L (3.5-5.1); Sodium Level 140 mmol/L (136-145)
== END | disposition home or self-care (01) ==
LOC: LAB 10:18
PROVIDERS: PCP Family Medicine Geriatric Medicine; Referring Provider Internal Medicine Nephrology; Visit Provider Internal Medicine Nephrology
DX: N18.31 Chronic kidney disease, stage 3a (principal)
CPT/HCPCS: 36415; 80069

== ENCOUNTER → 2022-08-29 | Outpatient (CLI) | payer MEDICARE, OTHER, SELFPAY ==
[2022-08-29 13:09] LABS: Absolute Lymphocyte Count 1.56 X10^3/uL (0.83-4.51); Absolute Neutrophil Count 7.6 X10^3/uL (2.0-7.7); Basophil# 0.06 X10^3/uL; Basophil% 0.6 % (0-1); Eosinophil# 0.22 X10^3/uL; Eosinophils% 2.2 % (0-5); Hematocrit 49.5 % (40-54); Hemoglobin 16.3 g/dL (13.0-16.5); Lymphocyte # 1.56 X10^3/ul (0.83-4.51); Lymphocyte % 15.5 % (19-41); Mean Corp Hgb Conc 32.9 g/dL (32-36); Mean Corpuscular Hgb 30.3 pg (27.0-32.0); Mean Platelet Vol. 12.6 fl (6.2-12.0); Monocyte# 0.58 X10^3/uL; Monocyte% 5.7 % (0-10); NRBC Flagged by Analyzer 0 % (0-5); Neutrophil # 7.63 X10^3/uL (2.7-7.7); Neutrophil % 75.6 % (47-70); Platelet Count 162 K/mm3 (150-450); RBC Distribution Width CV 13.4 % (11.6-14.6); RBC Distribution Width SD 45.6 fl (35.1-43.9); Red Blood Count 5.38 M/mm3 (4.6-6.2); White Blood Count 10.1 K/mm3 (4.4-11.0)
[2022-08-29 13:24] LABS: Vitamin D,25 Hydroxy 41.9 ng/mL
[2022-08-29 13:34] LABS: AST(SGOT) 24 U/L (15-37); Alanine Aminotransfer ALT/SGPT 18 U/L (16-61); Albumin, Serum 3.9 g/dL (3.2-5.0); Alkaline Phosphatase 56 U/L (45-117); Anion Gap 8 (5-15); BUN 18 mg/dL (7-18); BUN/Creat Ratio 11.3 RATIO (10-20); Calcium,Total 9.3 mg/dL (8.5-10.1); Chloride 104 mmol/L (98-107); Creatinine, Serum 1.59 mg/dL (0.70-1.30); EST Glomerular Filtration Rate 46 mL/min (>60); Est Glom Filt Rate - Afr Amer 56 mL/min (>60); Globulin 3.8 g/dL (2.2-4.2); Glucose 107 mg/dL (74-106); PSA,Total - Annual Screen 2.88 ng/mL (0.00-4.00); Potassium 4.6 mmol/L (3.5-5.1); Protein, Total 7.7 g/dL (6.4-8.2); Sodium Level 139 mmol/L (136-145); Thyroid Stim Hormone (TSH) 0.85 uIU/mL (0.358-3.74)
== END | disposition home or self-care (01) ==
LOC: POLAB3 09:58
PROVIDERS: PCP Family Medicine Geriatric Medicine; Visit Provider Family Medicine Geriatric Medicine
DX: R53.83 Other fatigue (principal); F52.8 Other sexual dysfunction not due to a substance or known physiological condition; E55.9 Vitamin D deficiency, unspecified; Z12.5 Encounter for screening for malignant neoplasm of prostate
CPT/HCPCS: 36415; 80053; 82306; 84153; 84403; 84443; 85025; G0103

== ENCOUNTER → 2023-03-06 | Outpatient (CLI) | payer MEDICARE, OTHER, SELFPAY ==
[2023-03-06 11:04] LABS: Absolute Lymphocyte Count 2.06 X10^3/uL (0.83-4.51); Absolute Neutrophil Count 3.5 X10^3/uL (2.0-7.7); Basophil# 0.03 X10^3/uL; Basophil% 0.5 % (0-1); Eosinophil# 0.25 X10^3/uL; Hematocrit 49.3 % (40-54); Hemoglobin 16.1 g/dL (13.0-16.5); Lymphocyte # 2.06 X10^3/ul (0.83-4.51); Lymphocyte % 33.2 % (19-41); Mean Corp Hgb Conc 32.7 g/dL (32-36); Mean Corpuscular Hgb 29.7 pg (27.0-32.0); Mean Corpuscular Volume 90.8 fL (80-94); Mean Platelet Vol. 12.6 fl (6.2-12.0); Monocyte# 0.35 X10^3/uL; Monocyte% 5.6 % (0-10); NRBC Flagged by Analyzer 0 % (0-5); Neutrophil # 3.49 X10^3/uL (2.7-7.7); Neutrophil % 56.4 % (47-70); Platelet Count 185 K/mm3 (150-450); RBC Distribution Width CV 13.8 % (11.6-14.6); RBC Distribution Width SD 46.5 fl (35.1-43.9); Red Blood Count 5.43 M/mm3 (4.6-6.2); White Blood Count 6.2 K/mm3 (4.4-11.0)
[2023-03-06 11:19] LABS: Vitamin D,25 Hydroxy 51.8 ng/mL
[2023-03-06 11:31] LABS: AST(SGOT) 21 U/L (15-37); Alanine Aminotransfer ALT/SGPT 21 U/L (16-61); Albumin, Serum 3.8 g/dL (3.2-5.0); Alkaline Phosphatase 53 U/L (45-117); Anion Gap 4 (5-15); BUN 18 mg/dL (7-18); BUN/Creat Ratio 10.4 RATIO (10-20); Chloride 105 mmol/L (98-107); Creatinine, Serum 1.73 mg/dL (0.70-1.30); EST Glomerular Filtration Rate 42 mL/min (>60); Est Glom Filt Rate - Afr Amer 51 mL/min (>60); Globulin 3.7 g/dL (2.2-4.2); Glucose 115 mg/dL (74-106); Potassium 4.4 mmol/L (3.5-5.1); Protein, Total 7.5 g/dL (6.4-8.2); Sodium Level 137 mmol/L (136-145)
== END | disposition home or self-care (01) ==
LOC: POLAB3 09:54
PROVIDERS: PCP Family Medicine Geriatric Medicine; Visit Provider Family Medicine Geriatric Medicine
DX: I10 Essential (primary) hypertension (principal); E55.9 Vitamin D deficiency, unspecified
CPT/HCPCS: 36415; 80053; 82306; 84443; 85025

== ENCOUNTER → 2023-08-06 | Outpatient (CLI) | payer MEDICARE, OTHER, SELFPAY ==
[2023-08-06 17:27] LABS: Albumin, Serum 3.9 g/dL (3.2-5.0); BUN 18 mg/dL (7-18); BUN/Creat Ratio 11.8 RATIO (10-20); Calcium,Total 9.2 mg/dL (8.5-10.1); Chloride 107 mmol/L (98-107); Creatinine, Serum 1.53 mg/dL (0.70-1.30); EST Glomerular Filtration Rate 48 mL/min (>60); Est Glom Filt Rate - Afr Amer 58 mL/min (>60); Glucose 119 mg/dL (74-106); Phosphorus 2.9 mg/dL (2.5-4.9); Potassium 4.3 mmol/L (3.5-5.1); Sodium Level 140 mmol/L (136-145)
== END | disposition home or self-care (01) ==
LOC: LAB 16:38
PROVIDERS: PCP Family Medicine Geriatric Medicine; Referring Provider Internal Medicine Nephrology; Visit Provider Internal Medicine Nephrology
DX: N18.32 Chronic kidney disease, stage 3b (principal)
CPT/HCPCS: 36415; 80069

== ENCOUNTER → 2023-09-05 | Outpatient (CLI) | payer MEDICARE, OTHER, SELFPAY ==
[2023-09-05 11:09] LABS: Absolute Lymphocyte Count 1.82 X10^3/uL (0.83-4.51); Absolute Neutrophil Count 3.8 X10^3/uL (2.0-7.7); Basophil# 0.05 X10^3/uL; Basophil% 0.8 % (0-1); Eosinophil# 0.15 X10^3/uL; Eosinophils% 2.4 % (0-5); Hematocrit 48.9 % (40-54); Hemoglobin 16.3 g/dL (13.0-16.5); Lymphocyte # 1.82 X10^3/ul (0.83-4.51); Lymphocyte % 29.5 % (19-41); Mean Corp Hgb Conc 33.3 g/dL (32-36); Mean Corpuscular Hgb 29.9 pg (27.0-32.0); Mean Corpuscular Volume 89.7 fL (80-94); Mean Platelet Vol. 11.9 fl (6.2-12.0); Monocyte# 0.33 X10^3/uL; Monocyte% 5.4 % (0-10); NRBC Flagged by Analyzer 0 % (0-5); Neutrophil # 3.79 X10^3/uL (2.7-7.7); Neutrophil % 61.6 % (47-70); Platelet Count 173 K/mm3 (150-450); RBC Distribution Width CV 13.6 % (11.6-14.6); RBC Distribution Width SD 44.6 fl (35.1-43.9); Red Blood Count 5.45 M/mm3 (4.6-6.2); White Blood Count 6.2 K/mm3 (4.4-11.0)
[2023-09-05 11:26] LABS: Vitamin D,25 Hydroxy 63.7 ng/mL
[2023-09-05 11:50] LABS: ALB/GLOB Ratio 1.1 RATIO (0.9-2.4); AST(SGOT) 21 U/L (15-37); Alanine Aminotransfer ALT/SGPT 19 U/L (16-61); Albumin, Serum 3.9 g/dL (3.2-5.0); Alkaline Phosphatase 50 U/L (45-117); Anion Gap 6 (5-15); BUN 21 mg/dL (7-18); Calcium,Total 9.2 mg/dL (8.5-10.1); Chloride 104 mmol/L (98-107); Creatinine, Serum 1.75 mg/dL (0.70-1.30); EST Glomerular Filtration Rate 41 mL/min (>60); Est Glom Filt Rate - Afr Amer 50 mL/min (>60); Globulin 3.5 g/dL (2.2-4.2); Glucose 117 mg/dL (74-106); PSA,Total - Annual Screen 3.12 ng/mL (0.00-4.00); Potassium 4.2 mmol/L (3.5-5.1); Protein, Total 7.4 g/dL (6.4-8.2); Sodium Level 139 mmol/L (136-145); Thyroid Stim Hormone (TSH) 0.83 uIU/mL (0.358-3.74)
--- OUTSIDE RECORDS SUMMARY | 2023-09-05 14:26 | XMS RPT_ITS | CCD ---
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 Unavailable Unavailable DEE, CLARK-CHI Unavailable Unavailable PROVIDER, UNKNOWN Unavailable Unavailable PROVIDER, UNKNOWN Unavailable Unavailable DEE, [facility]ARK-CHI Unavailable Unavailable LINH VERA Unavailable Unavailable PROVIDER, UNKNOWN Unavailable Unavailable PROVIDER, UNKNOWN Unavailable Unavailable DEE, [facility]ARK-[facility]I Unavailable Unavailable PROVIDER, UNKNOWN Unavailable Unavailable PROVIDER, UNKNOWN Unavailable Unavailable LENGU, MILADY J. Unavailable Unavailable DEE, [facility]I Unavailable Unavailable DEE, [facility]I Unavailable Unavailable LENGU, MILADY J. Unavailable Unavailable LENGU, MILADY J. Unavailable Unavailable LENGU, MILADY J. Unavailable Unavailable PROVIDER, UNKNOWN Unavailable Unavailable PROVIDER, UNKNOWN Unavailable Unavailable LENGU, MILADY J. Unavailable Unavailable DEE, CLARK-CHI Unavailable Unavailable PROVIDER, UNKNOWN Unavailable Unavailable PROVIDER, UNKNOWN Unavailable Unavailable DEE, [facility]I Unavailable Unavailable DEE, [facility] Unavailable Unavailable LENGU, MILADY J. Unavailable Unavailable LENGU, MILADY J. Unavailable Unavailable LENGU, MILADY J. Unavailable Unavailable PROVIDER, UNKNOWN Unavailable Unavailable PROVIDER, UNKNOWN Unavailable Unavailable DEE, CLARK-[facility]I Unavailable Unavailable PROVIDER, UNKNOWN Unavailable Unavailable PROVIDER, UNKNOWN Unavailable Unavailable LENGU, MILADY J. Unavailable Unavailable DEE, [facility]I Unavailable Unavailable PROVIDER, UNKNOWN Unavailable Unavailable PROVIDER, UNKNOWN Unavailable Unavailable DEE, [facility] Unavailable Unavailable WILLIAM SYLVESTER Unavailable Unavailable DEE, [facility] Unavailable Unavailable Peter BROUSSARD Unavailable Unavailable Peter BROUSSARD Unavailable Unavailable PROVIDER, UNKNOWN Unavailable Unavailable PROVIDER, UNKNOWN Unavailable Unavailable Peter BROUSSARD Unavailable Unavailable DEE, [facility]ARK-[facility]I Unavailable Unavailable PROVIDER, UNKNOWN Unavailable Unavailable PROVIDER, UNKNOWN Unavailable Unavailable PATIENT, SELF Unavailable Unavailable DEE, CLARK-[facility]I Unavailable Unavailable PROVIDER, UNKNOWN Unavailable Unavailable PROVIDER, UNKNOWN Unavailable Unavailable Peter BROUSSARD Unavailable Unavailable DEE, [facility]ARK-[facility]I Unavailable Unavailable PROVIDER, UNKNOWN Unavailable Unavailable PROVIDER, UNKNOWN Unavailable Unavailable DEE, [facility] Unavailable Unavailable VAN MARTIN Unavailable Unavailabl e PROVIDER, UNKNOWN Unavailable Unavailable PROVIDER, UNKNOWN Unavailable Unavailable PATIENT, SELF Unavailable Unavailable DEE, CLARK-[facility]I Unavailable Unavailable PROVIDER, UNKNOWN Unavailable Unavailable PROVIDER, UNKNOWN Unavailable Unavailable DEE, [facility]I Unavailable Unavailable YAKOV SMITH Unavailable Unavailable Problems Active Problems Problem Classification Problem Date Documented Da te Episodic/Chronic Cardiac dysrhythmias (1 source) Bradycardia, unspecified; Translations: [Bradycardia, unspecified] Onset: 01-14-2018 Chronic Radha-; endo-; and myocarditis; cardiomyopathy (except that caused by tuberculosis or sexually transmitted disease) (1 source) Other hypertrophic cardiomyopathy; Translations: [Other hypertrophic cardiomyopathy] Onset: 01-14-2018 Chronic Past or Other Problems Problem Classification Problem Date Documented Date Episodic/Chronic Calculus of urinary tract (1 source) Calculus of kidney; Translations: [Calculus of kidney] Onset: 02-19-2018 Episodic Genitourinary symptoms and ill-defined conditions (1 source) Hematuria, unspecified; Translations: [Hematuria, unspecified] Onset: 12-16-2017 Episodic Other screening for suspected conditions (not mental disorders or infectious disease) (1 source) Abnormal electrocardiogram [ECG] [EKG]; Translations: [Abnormal electrocardiogram (ECG) (EKG)] Onset: 01-14-2018 Episodic Results Test Name Value Interpretation Reference Range Facil ity Vital Signs Date Time Vital Sign Value Performing Clinician Coretta marin 02-14-2018 17:29-0400 Body weight Measured 0.04790 kg UNKNOWN PROVIDER [employer] Encounters Encounter Date Encounter Type Care Provider Facility Start: 05-26-2018 End: 05-27-2018 Patient encounter procedure UNKNOWN PROVIDER Facility:[facility] Start: 04-14-2018 End: 04-15-2018 Patient encounter procedure UNKNOWN PROVIDER Facility:[facility] Start: 03-31-2018 End: 03-31-2018 Patient encounter procedure UNKNOWN PROVIDER Facility:[facility] Start: 03-04-2018 End: 03-04-2018 Patient encounter procedure CLARK-CHI DEE Facility:[facility] Start: 02-28-2018 End: 02-28-2018 Patient encounter procedure UNKNOWN PROVIDER Facility:[facility] Start: 02-19-2018 End: 02-20-2018 Patient encounter procedure UNKNOWN PROVIDER Facility:[facility] Start: 02-14-2018 End: 02-14-2018 Patient encounter procedure CLARK-CHI DEE Facility:[facility] Start: 01-24-2018 End: 01-24-2018 Patient encounter procedure UNKNOWN PROVIDER Facility:[facility] Start: 01-14-2018 Encounter for other preprocedural examination UNKNOWN PROVIDER [facility] Start: 01-14-2018 End: 01-14-2018 Patient encounter procedure UNKNOWN PROVIDER Facility:[facility] Start: 12-30-2017 End: 12-30-2017 Patient encounter procedure UNKNOWN PROVIDER Facility:[facility] Start: 12-30-2017 End: 12-30-2017 Patient encounter procedure UNKNOWN PROVIDER Facility:[facility] Start: 12-16-2017 End: 12-16-2017 Patient encounter procedure UNKNOWN PROVIDER Facility:[facility] Start: 11-13-2017 Ambulatory LINH VERA Facility:0 [id number] Procedures Date Procedure Procedure Detail Performing Clinician Start: 05-26-2018 Assay of citrate UNKNOW N PROVIDER Start: 05-26-2018 Radiologic exam abdo men 1 view UNKNOWN PROVIDER Start: 04-14-2018 Radiologic exam abdo men 1 view UNKNOWN PROVIDER Start: 04-14-2018 Urnls dip stick/tabl et rgnt auto w/o microscopy UNKNOWN PROVIDER Start: 03-31-2018 Cysto w/simple remov al stone & stent UNKNOWN PROVIDER Start: 03-31-2018 Urnls dip stick/tabl et rgnt auto w/o microscopy UNKNOWN PROVIDER Start: 03-04-2018 Lithotripsy xtrcorp shock wave UNKNOWN PROVIDER Start: 02-28-2018 Bacteria identified in Urine by Culture UNKNOWN PROVIDER Start: 02-28-2018 Urnls dip stick/tabl et rgnt auto w/o microscopy UNKNOWN PROVIDER Start: 02-19-2018 Radiologic exam abdo men 1 view UNKNOWN PROVIDER Start: 02-14-2018 Calculus infrared spectroscopy UNKNOWN PROVIDER Start: 02-14-2018 X-ray urinary tract exam with contrast material UNKNOWN PROVIDER Start: 01-24-2018 Calculus infrared spectroscopy UNKNOWN PROVIDER Start: 01-24-2018 X-ray urinary tract exam with contrast material UNKNOWN PROVIDER Start: 01-14-2018 Bacteria identified in Urine by Culture UNKNOWN PROVIDER Start: 01-14-2018 Ecg routine ecg w/le ast 12 lds trcg only w/o i&r UNKNOWN PROVIDER Start: 01-14-2018 Urnls dip stick/tabl et rgnt auto w/o microscopy UNKNOWN PROVIDER Start: 12-16-2017 Basic metabolic pane l calcium total UNKNOWN PROVIDER Start: 12-16-2017 Ct abdomen & pelvis w/o contrst 1/> body re UNKNOWN PROVIDER Start: 12-16-2017 Radiologic exam abdo men 1 view UNKNOWN PROVIDER Start: 12-16-2017 Urnls dip stick/tabl et rgnt auto w/o microscopy UNKNOWN PROVIDER Payers Date Payer Category Payer Unknown [id number] 1955 Unknown [id number] 2.16 [id number]. 1953 Unknown [id number] 2.16 [id number] 1953 Unknown [id number] 2. 840.1.135579.3.579.2. 1953 Unknown [id number] 2. 840.1.022844.3.579.2.73 1953 Unknown [id number] 2. 840.1.186143.3.579.2. 1953 Unknown [id number] 2.16. 840.1.180117.3.579.2.73 1953 Unknown [id number] 2.16 840.1.155279.3.579.2. 1953 Unknown [id number] 2.16. 840.1.186965.3.579.2.73 1953 Unknown [id number] 2.16 840.1.032742.3.579.2. 1953 Unknown [id number] 2.16 840.1.551768.3.579.2.73 1953 Unknown [id number] 2.16 840.1.830122.3.579.2. 1953 Unknown [id number] 2.16. 840.1.842401.3.579.2.732 1953 Unknown [id number] 2.16. 840.1.092180.3.579.2.732 1953 Unknown [id number] 2.16. 840.1.252909.3.579.2.73 1953 Unknown [id number] 2.16. 840.1.375439.3.579.2.73 1953 Unknown [id number] 2.16. 840.1.726885.3.579.2.73 1953 Unknown [id number] 2.16. 840.1.203952.3.579.2.732 1953 Unknown [id number] 2.16. [id number] Summary Purpose Family History No Family History Records FoundNo Family History Records Found Advance Directives No Advanced Directives Records FoundNo Advanced Directives Records Found Additional Source Comments (unrecognized sect ion and content) No Status Records FoundNo Status Records Found INFORMATION SOURCE (unrecogn ized section and content) DATE CREATED AUTHOR AUTHOR'S HALI CAM 06/03/2018 [facility] FOR RECORDS PERTAINING TO PATIENTS WHO ARE OR HAVE BEEN ENROLLED IN A CHEMICAL DEPENDENCY/SUBSTANCEABUSE PROGRAM, SOME INFORMATION MAY BE OMITTED. This clinical summary was aggregated from multiple sources. Caution should be exercised in using it in the provision of clinical care. This summary normalizes information from multiple sources, and as a consequence, information in this document may materially change the coding, format and clinical context of patient data. In addition, data may be omitted in some cases. CLINICAL DECISIONS SHOULD BE BASED ON THE PRIMARY CLINICAL RECORDS. [facility]. provides no warranty or guarantee of the accuracy or completeness of information in this document.
== END | disposition home or self-care (01) ==
LOC: POLAB3 09:56
PROVIDERS: PCP Family Medicine Geriatric Medicine; Visit Provider Family Medicine Geriatric Medicine
DX: I10 Essential (primary) hypertension (principal); E55.9 Vitamin D deficiency, unspecified; Z12.5 Encounter for screening for malignant neoplasm of prostate
CPT/HCPCS: 36415; 80053; 82306; 84153; 84443; 85025; G0103

== ENCOUNTER → 2024-03-04 | Outpatient (CLI) | payer MEDICARE, OTHER, SELFPAY ==
[2024-03-04 11:38] LABS: Absolute Lymphocyte Count 1.69 X10^3/uL (0.83-4.51); Absolute Neutrophil Count 3.9 X10^3/uL (2.0-7.7); Basophil# 0.05 X10^3/uL; Basophil% 0.8 % (0-1); Eosinophil# 0.21 X10^3/uL; Eosinophils% 3.4 % (0-5); Hematocrit 47.1 % (40-54); Hemoglobin 15.9 g/dL (13.0-16.5); Lymphocyte # 1.69 X10^3/ul (0.83-4.51); Lymphocyte % 27.3 % (19-41); Mean Corp Hgb Conc 33.8 g/dL (32-36); Mean Corpuscular Hgb 29.9 pg (27.0-32.0); Mean Corpuscular Volume 88.7 fL (80-94); Monocyte# 0.35 X10^3/uL; Monocyte% 5.6 % (0-10); NRBC Flagged by Analyzer 0 % (0-5); Neutrophil # 3.89 X10^3/uL (2.7-7.7); Neutrophil % 62.7 % (47-70); Platelet Count 174 K/mm3 (150-450); RBC Distribution Width CV 13.3 % (11.6-14.6); RBC Distribution Width SD 43.3 fl (35.1-43.9); Red Blood Count 5.31 M/mm3 (4.6-6.2); White Blood Count 6.2 K/mm3 (4.4-11.0)
[2024-03-04 12:11] LABS: Vitamin D,25 Hydroxy 65.8 ng/mL
[2024-03-04 12:18] LABS: AST(SGOT) 17 U/L (15-37); Alanine Aminotransfer ALT/SGPT 18 U/L (16-61); Albumin, Serum 3.6 g/dL (3.2-5.0); Alkaline Phosphatase 49 U/L (45-117); Anion Gap 4 (5-15); BUN 16 mg/dL (7-18); BUN/Creat Ratio 10.1 RATIO (10-20); Calcium,Total 9.4 mg/dL (8.5-10.1); Chloride 107 mmol/L (98-107); Creatinine, Serum 1.59 mg/dL (0.70-1.30); EST Glomerular Filtration Rate 46 mL/min (>60); Est Glom Filt Rate - Afr Amer 56 mL/min (>60); Globulin 3.6 g/dL (2.2-4.2); Glucose 122 mg/dL (74-106); Potassium 4.3 mmol/L (3.5-5.1); Protein, Total 7.2 g/dL (6.4-8.2); Sodium Level 139 mmol/L (136-145); Thyroid Stim Hormone (TSH) 0.922 uIU/mL (0.358-3.740)
== END | disposition home or self-care (01) ==
LOC: POLAB3 11:21
PROVIDERS: PCP Family Medicine Geriatric Medicine; Visit Provider Family Medicine Geriatric Medicine
DX: I10 Essential (primary) hypertension (principal); E55.9 Vitamin D deficiency, unspecified
CPT/HCPCS: 36415; 80053; 82306; 84443; 85025

== ENCOUNTER → 2024-09-07 | Outpatient (CLI) | payer MEDICARE, OTHER, SELFPAY ==
[2024-09-07 11:16] LABS: Absolute Lymphocyte Count 1.88 X10^3/uL (0.83-4.51); Absolute Neutrophil Count 4.5 X10^3/uL (2.0-7.7); Basophil# 0.05 X10^3/uL; Basophil% 0.7 % (0-1); Eosinophil# 0.13 X10^3/uL; Eosinophils% 1.9 % (0-5); Hematocrit 46.6 % (40-54); Hemoglobin 15.6 g/dL (13.0-16.5); Lymphocyte # 1.88 X10^3/ul (0.83-4.51); Mean Corp Hgb Conc 33.5 g/dL (32-36); Mean Corpuscular Hgb 29.9 pg (27.0-32.0); Mean Corpuscular Volume 89.3 fL (80-94); Mean Platelet Vol. 11.7 fl (6.2-12.0); Monocyte# 0.36 X10^3/uL; Monocyte% 5.2 % (0-10); NRBC Flagged by Analyzer 0 % (0-5); Neutrophil # 4.54 X10^3/uL (2.7-7.7); Neutrophil % 65.1 % (47-70); Platelet Count 171 K/mm3 (150-450); RBC Distribution Width CV 13.5 % (11.6-14.6); RBC Distribution Width SD 43.8 fl (35.1-43.9); Red Blood Count 5.22 M/mm3 (4.6-6.2)
[2024-09-07 13:11] LABS: ALB/GLOB Ratio 1.7 RATIO (0.9-2.4); AST(SGOT) 23 U/L (<=37); Alanine Aminotransfer ALT/SGPT 10 U/L (<=46); Albumin, Serum 4.3 g/dL (3.4-4.8); Alkaline Phosphatase 47 U/L (40-129); Anion Gap 11 (5-15); BUN 15 mg/dL (4-19); BUN/Creat Ratio 8.5 RATIO (10-20); Calcium,Total 9.6 mg/dL (7.6-11.0); Carbon Dioxide 27.5 mmol/L (21.0-32.0); Chloride 104 mmol/L (98-108); Creatinine, Serum 1.72 mg/dL (0.70-1.20); EST Glomerular Filtration Rate 42 (>60); Globulin 2.6 g/dL (2.2-4.2); Glucose 93 mg/dL (70-99); PSA,Total - Annual Screen 2.98 ng/mL (0.02-4.00); Potassium 4.3 mmol/L (3.3-5.1); Protein, Total 6.9 g/dL (5.9-8.4); Sodium Level 142 mmol/L (133-145); Vitamin D,25 Hydroxy 73.4 ng/mL (30-100)
== END | disposition home or self-care (01) ==
LOC: POLAB3 10:57
PROVIDERS: PCP Family Medicine Geriatric Medicine; Visit Provider Family Medicine Geriatric Medicine
DX: Z12.5 Encounter for screening for malignant neoplasm of prostate (principal); E55.9 Vitamin D deficiency, unspecified; I10 Essential (primary) hypertension
CPT/HCPCS: 36415; 80053; 82306; 84153; 84443; 85025; G0103

== ENCOUNTER → 2024-10-08 | Outpatient (CLI) | payer MEDICARE, OTHER, SELFPAY | END | disposition home or self-care (01) | LOC: LABSPEC 16:48 | PROVIDERS: PCP Family Medicine Geriatric Medicine; Referring Provider Family Medicine Geriatric Medicine; Visit Provider Family Medicine Geriatric Medicine | DX: R05.9 Cough, unspecified (principal); R68.83 Chills (without fever); R06.2 Wheezing | CPT/HCPCS: 87631 ==

== ENCOUNTER → 2025-03-09 | Outpatient (CLI) | payer MEDICARE, OTHER, SELFPAY ==
[2025-03-09 11:10] LABS: Hematocrit 45.4 % (40-54); Hemoglobin 15.4 g/dL (13.0-16.5); Immature Granulocytes Count 0.020 X10^3/uL (0.0-0.0); Mean Corp Hgb Conc 33.9 g/dL (32-36); Mean Corpuscular Volume 88.8 fL (80-94); Mean Platelet Vol. 11.7 fl (6.2-12.0); NRBC Flagged by Analyzer 0 % (0-5); Platelet Count 164 K/mm3 (150-450); RBC Distribution Width CV 13.2 % (11.6-14.6); RBC Distribution Width SD 42.9 fl (35.1-43.9); Red Blood Count 5.11 M/mm3 (4.6-6.2); White Blood Count 5.8 K/mm3 (4.4-11.0)
[2025-03-09 11:54] LABS: AST(SGOT) 25 U/L (<=37); Alanine Aminotransfer ALT/SGPT 10 U/L (<=46); Albumin, Serum 4.2 g/dL (3.4-4.8); Alkaline Phosphatase 46 U/L (40-129); Anion Gap 11 (5-15); BUN 17 mg/dL (4-19); BUN/Creat Ratio 11.4 RATIO (10-20); Calcium,Total 9.1 mg/dL (7.6-11.0); Carbon Dioxide 24.4 mmol/L (21.0-32.0); Chloride 105 mmol/L (98-108); Globulin 2.5 g/dL (2.2-4.2); Glucose 142 mg/dL (70-99); Potassium 4.2 mmol/L (3.3-5.1); Vitamin D,25 Hydroxy 70.8 ng/mL (30-100)
[2025-03-09 18:59] LABS: Xtra Tube Kwok EXTRA TUBE
== END | disposition home or self-care (01) ==
LOC: POLAB3 10:59
PROVIDERS: PCP Family Medicine Geriatric Medicine; Visit Provider Family Medicine Geriatric Medicine
DX: I10 Essential (primary) hypertension (principal); E55.9 Vitamin D deficiency, unspecified
CPT/HCPCS: 36415; 80053; 82306; 84443; 85025